=== PATIENT | female | born 1965 | race Caucasian/White ===

== ENCOUNTER 2022-07-25 15:50 | Observation (INO) | payer SELFPAY ==
[2022-07-25 15:50] VITALS: BP 159/98; PULSE 58; RESP 20; TEMP 36.8; O2SAT 97; BMI 26.1
--- NOTE | 2022-07-25 15:50 | ECG_ITS ---
APPROVED REPORT Exam: Resting ECG HR:58 bpm ECG Measurements Heart Rate 58 AXES IA 164 P 43 QRSd 82 QRS 70 QT 431 T 84 QTc 427 Conclusion SINUS BRADYCARDIA BORDERLINE ECG UNCONFIRMED REPORT Electronically signed by : Mo Julian MD 07/25/2022 19:41:28
--- NOTE | 2022-07-25 16:00 | PC.NURSE ---
lab called for blood collection
[2022-07-25 16:18] VITALS: BMI 24.7
--- NOTE | 2022-07-25 16:26 | XR_ITS ---
FINAL REPORT CLINICAL HISTORY: pain COMPARISON: 07/25/2022 FINDINGS: PORTABLE CHEST The heart is normal in size. The mediastinum is unremarkable. The lungs are clear. There is no pneumothorax. IMPRESSION: No acute process. Reviewed, Interpreted and Dictated by Justin Escobedo MD Transcribed by Claudia Hatch Authenticated and [facility]
--- NOTE | 2022-07-25 16:34 | CT_ITS ---
PROCEDURE INFORMATION: Exam: CT Abdomen And Pelvis With Contrast Exam date and time: 07/25/2022 7:21 PM Age: 56 years old Clinical indication: Abdominal pain; Generalized; Additional info: Abd pain TECHNIQUE: Imaging protocol: Computed tomography of the abdomen and pelvis with contrast. Radiation optimization: All CT scans at this facility use at least one of these dose optimization techniques: automated exposure control; mA and/or kV adjustment per patient size (includes targeted exams where dose is matched to clinical indication); or iterative reconstruction. Contrast material: ISOVUE; Contrast volume: 75 ml; Contrast route: IV; COMPARISON: CR XR CHEST PORTABLE 07/25/2022 4:44 PM FINDINGS: Lungs: Mild scarring and atelectasis in the lower lungs. Heart: Coronary artery calcifications. Liver: Hyperemia of the liver around the gallbladder fossa is likely reactive. Gallbladder and bile ducts: The gallbladder is dilated with gallbladder wall thickening and pericholecystic edema. There is likely a stone at the neck of the gallbladder. Pancreas: Normal. No ductal dilation. Spleen: Normal. No splenomegaly. Adrenal glands: Normal. No mass. Kidneys and ureters: Normal. No hydronephrosis. Stomach and bowel: Unremarkable. No obstruction. No mucosal thickening. Appendix: Unremarkable appendix. Intraperitoneal space: Unremarkable. No free air. No significant fluid collection. Vasculature: The arteries demonstrate moderate atherosclerotic disease. Lymph nodes: Unremarkable. No enlarged lymph nodes. Urinary bladder: Unremarkable as visualized. Reproductive: Unremarkable as visualized. Bones/joints: Unremarkable. No acute fracture. Soft tissues: Tiny fat containing umbilical hernia. Other findings: Stigmata of old granulomatous disease. IMPRESSION: Acute cholecystitis.
--- NOTE | 2022-07-25 16:35 | HMH.EDGENADL ---
Discharge Plan Disposition Patient Disposition: Admitted As Inpatient Condition: Good Referrals Follow up/Referrals: Provider,Referral, MD [Referring] - See instructions Clinical Impressions Clinical Impression: Acute cholecystitis Discharge ED Provider: Waqar Rodas General Adult HPI General Chief complaint: PAIN Stated complaint: epigastric pain Time Seen by Provider: 07/25/22 16:24 History of Present Illness HPI narrative: Patient presents complaining of upper abdominal pain that began this past Sunday. She describes the pain as radiating into her back as well as under her chest. She notes nausea but denies vomiting or diarrhea. She describes the pain as severe initially but presently is moderate and without exacerbating or alleviating factors. Related Data Allergies Allergy/AdvReac Type Severity Reaction Status Date / Time No Known Allergies Allergy Verified 07/25/22 16:19 PFSH PFSH Social History Smoking Status: Never smoker alcohol intake: never current occupational status: unemployed Travel in the last 8 weeks: None ROS Obtained: Yes All systems reviewed & no additional complaints except as documented Physical Exam General General appearance: alert and in no apparent distress Head Head exam: atraumatic, normocephalic and normal inspection Eye Eye exam: Present normal appearance, PERRL and EOMI ENT ENT exam: Present normal exam, normal oropharynx, mucous membranes moist, TM's normal bilaterally and normal external ear exam Neck Neck exam: Present normal inspection, full ROM and trachea midline; Absent meningismus or lymphadenopathy Chest Chest inspection: Present normal inspection and symmetric chest wall rise; Absent tenderness Respiratory Respiratory exam: Present normal lung sounds bilaterally; Absent respiratory distress Cardiovascular Cardiovascular exam: Present regular rate and normal rhythm; Absent JVD Abdominal Exam Abdominal exam: Present tenderness (There is diffuse upper abdominal tenderness particular in the right upper quadrant.) Extremities Exam Extremities exam: Present normal inspection, full ROM and normal capillary refill; Absent calf tenderness Back Exam Back exam: Present normal inspection; Absent tenderness Neurological Exam Neurological exam: Present alert and oriented X3 Psychiatric Psychiatric exam: Present normal affect and normal mood Skin Skin exam: Present warm, dry, intact and normal color Lymphatic Lymphatic Findings: no adenopathy Medical Decision Making Medical Records Medical records reviewed: Yes I reviewed the patient's medical records. Matty Inquiry Pt receiving controlled substance: Yes Matty was queried for this patient: No Reason not queried -: Emergent pt cond-no time Risks and benefits of using a controlled substance: were discussed with pt by me Vital Signs: 07/25/22 15:50 07/25/22 17:02 07/25/22 18:00 Temperature 98.3 F Temperature Source Oral Pulse Rate 48 L 61 Pulse Rate [Left Radial] 58 L Respiratory Rate 20 20 16 Blood Pressure 196/93 H 173/99 H Blood Pressure [Right Arm] 159/98 H Blood Pressure Mean 127 123 Blood Pressure Mean [Right Arm] 118 02 Sat by Pulse Oximetry 97 98 97 Lab Data Lab results reviewed: Yes I reviewed the patient's lab results. Lab Results 07/25/22 17:35: Troponin I < 0.01 07/25/22 17:35: WBC 12.8 H, RBC 4.62, Hgb 14.0, Hct 42.2, MCV 91.3, MCH 30.3, MCHC 33.1, RDW 14.1, Plt Count 309, MPV 8.4, Neut % (Auto) 78.1, Lymph % (Auto) 17.9, [place] % (Auto) 3.2, Eos % (Auto) 0.2, Baso % (Auto) 0.7, Neut # (Auto) 10.0 H, Lymph # (Auto) 2.3, [place] # (Auto) 0.4, Eos # (Auto) 0.0, Baso # (Auto) 0.1 07/25/22 17:35: Sodium 140, Potassium 4.4, Chloride 105, Carbon Dioxide 27, Anion Gap 12.4, BUN 5 L, Creatinine 0.50 L, Estimated Creat Clear 140, Estimated GFR 127, Est GFR ( Amer) 154, Glucose 113 H, Calcium 8.9, Total Bilirubin 0.2, AST 30, ALT 38, Alkaline Phosphatase 143 H, Total Protein 6.8,
[2022-07-25 17:02] VITALS: BP 196/93; PULSE 48; RESP 20; O2SAT 98
--- NOTE | 2022-07-25 17:33 | PC.NURSE ---
lab at the bedside for blood draw
[2022-07-25 17:49] LABS: Basophils # 0.1 K/mm3 (0-0.2); Basophils % 0.7 % (0.1-2.0); Eosinophils % 0.2 % (0.1-12.0); Hematocrit 42.2 % (37.0-47.0); Lymphocytes # 2.3 K/mm3 (0.7-4.5); Lymphocytes % 17.9 % (10-50); Mean Corpuscular HGB Conc 33.1 g/dL (31.8-35.4); Mean Corpuscular Hemoglobin 30.3 pg (27.0-31.2); Mean Corpuscular Volume 91.3 fl (81-99); Mean Platelet Volume 8.4 fl (7.4-10.4); Monocytes # 0.4 K/mm3 (0.1-1.0); Monocytes % 3.2 % (1.7-9.3); Neutrophils % 78.1 % (37.0-80.0); Platelet Count 309 K/mm3 (142-424); Red Blood Count 4.62 M/mm3 (4.20-5.40); Red Cell Distribution Width 14.1 % (11.5-17.5); White Blood Count 12.8 K/mm3 (4.8-10.8)
[2022-07-25 18:00] VITALS: BP 173/99; PULSE 61; RESP 16; O2SAT 97
[2022-07-25 18:06] LABS: Alanine Aminotransferase 38 U/L (12-78); Albumin Level 3.9 g/dl (3.5-5.0); Albumin/Globulin Ratio 1.3 (1.1-1.8); Alkaline Phosphatase 143 U/L (38-126); Anion Gap 12.4 mEq/L (5-15); Aspartate Amino Transferase 30 U/L (14-36); Bilirubin,Total 0.2 mg/dl (0.2-1.3); Blood Urea Nitrogen 5 mg/dl (7-17); Calcium 8.9 mg/dl (8.4-10.2); Carbon Dioxide 27 mmol/L (22.0-30.0); Chloride 105 mmol/L (98-107); Creatinine Clearance Estimated 140 mL/min (50-200); Estimated Glomerular Filt Rate 127 ml/min (>60); GFR (African American) 154 ML/MIN (>60); Globulin 2.9 g/dL (1.3-3.2); Glucose 113 mg/dl (74-100); Lipase 115 U/L (23-300); Potassium 4.4 mmoL/L (3.5-5.1); Sodium 140 mmol/L (136-145); Total Protein,Serum 6.8 g/dl (6.3-8.2)
[2022-07-25 18:20] LABS: Troponin I < 0.01 ng/ml (0.00-0.034)
--- NOTE | 2022-07-25 18:55 | PC.NURSE ---
Rounded on pt at this time. Pt advised she still felt tense. Notified MD. Requested surgeon be paged. Dr. Hamilton paged at this time
--- NOTE | 2022-07-25 18:57 | PC.NURSE ---
speaking to dr mauricio
--- NOTE | 2022-07-25 18:57 | PC.NURSE ---
speaking with DR. Hamilton
[2022-07-25 19:14] LABS: Coronavirus 19, PCR Not Detected (NotDetected); Influenza A, PCR Not Detected (NotDetected); Influenza B, PCR Not Detected (NotDetected)
--- NOTE | 2022-07-25 19:27 | EXP.HP ---
History of Present Illness *Admission Date: 07/25/22 *Reason for visit:: Abdominal Pain, Nausea, Vomiting *History of present illness: Ms. Garcia is a 56-year-old female with a past medical history that is positive for Chronic Tobacco use. She presents to [facility] through the ER due to right upper abdominal quadrant pain associated with nausea, vomiting and reported chills ongoing and worsening over a 4 day period. In the ER, CT of the abdomen and pelvis showed a dilated gallbladder with gallbladder wall thickening and pericholecystic edema consistent with acute cholecystitis. The patient will be admitted with initial impression: Acute Cholecystitis. Surgery has been consulted to see the patient. The plan of care was discussed with the patient in length and detail at bedside in the ER. The patient verbalized understanding and agreement with the plan of care. [facility] Medical History (Updated 07/26/22 @ 07:47 by Aleks Camacho MD) History of gastroesophageal reflux (GERD) Migraine Surgical History (Updated 07/25/22 @ 21:17 by Kisha Goode RN) H/O abdominoplasty History of section Tubal ligation status Family History (Updated 07/25/22 @ 21:17 by Kisha Goode RN) Family history of GERD Family history of stroke Family history of cancer Family history of hypertension Family history of Alzheimer's disease Family history of diabetes mellitus type II Family history of migraine headaches Family history of myocardial infarction Family history of hyperlipidemia Social History (Updated 07/25/22 @ 21:17 by Kisha Goode RN) Smoking Status: Current every day smoker alcohol intake: never current occupational status: other Travel in the last 8 weeks: None Review of Systems Review of Systems Review of systems:: pertinent systems reviewed and negative unless documented below Constitutional Constitutional: Reports system reviewed and no additional complaints, except as documented Eyes Eyes: Reports system reviewed and no additional complaints, except as documented ENT Ears, Nose, Mouth, and Throat: Reports system reviewed and no additional complaints, except as documented *Cardiovascular Cardiovascular: Reports system reviewed and no additional complaints, except as documented *Respiratory Respiratory: Reports system reviewed and no additional complaints, except as documented *Gastrointestinal Gastrointestinal: Reports abdominal pain, Reports belching, Reports bloating, Reports nausea and Reports vomiting *Genitourinary Genitourinary: Reports system reviewed and no additional complaints, except as documented *Musculoskeletal Musculoskeletal: Reports system reviewed and no additional complaints, except as documented Integumentary/Breasts Skin/Breast: Reports system reviewed and no additional complaints, except as documented *Neurologic Neurologic: Reports system reviewed and no additional complaints, except as documented Psychiatric Psychiatric: Reports system reviewed and no additional complaints, except as documented Endocrine Endocrine: Reports system reviewed and no additional complaints, except as documented Hematologic/Lymphatic Hematologic/Lymphatic: Reports system reviewed and no additional complaints, except as documented Allergic/Immunologic Allergic/Immunologic: Reports system reviewed and no additional complaints, except as documented Meds Home Medications and Allergies Home Medications Medication Instructions Recorded Confirmed Type No Known Home Medications 07/25/22 07/25/22 History New Prescriptions to Start Prescriptions: Allergies Allergy/AdvReac Type Severity Reaction Status Date / Time No Known Allergies Allergy Verified 07/25/22 16:19 Exam Data for Last 24 hours Vital signs and Labs for Last 24 Hours: Temp Pulse Resp BP Pulse Ox 98.3 F 61 16 173/99 H 97 07/25/22 15:50 07/25/22 18:00 07/25/22 18:00 07/25/22 18:00 07/25
[2022-07-25 19:32] LABS: Microscopic, Urine URINE MICROSCOPIC (MICROSCOPIC)
[2022-07-25 19:39] VITALS: BP 179/93; PULSE 41; RESP 16; TEMP 36.7; O2SAT 98; BMI 26.4
[2022-07-25 19:49] LABS: Appearance,Urine CLEAR (Clear); Bilirubin,Urine Negative (Negative); Blood, Urine TRACE-I (Negative); Color,Urine YELLOW (Yellow); Glucose,Urine (UA) Negative (Negative); Ketones,Urine Negative (Negative); Leukocyte Esterase,Urine Negative (Negative); Nitrate,Urine Negative (Negative); PH,Urine 6.5 (5.0-8.5); Protein,Urine Negative (Negative); Urobilinogen,Urine 0.2 EU/dl (0.2)
--- NOTE | 2022-07-25 19:55 | PC.NURSE ---
pt blood pressure cuff changed. pt assessed for further needs. no requests at this time
[2022-07-25 19:56] VITALS: BP 159/79; PULSE 42; RESP 17; O2SAT 95
[2022-07-25 20:19] LABS: Bacteria,Urine Trace /lpf; RBC,Urine Occasional #/hpf (0-3); Squamous Epithelial Cell,Urine Occasional #/hpf (0-5); WBC,Urine Occasional #/hpf (0-3)
[2022-07-25 20:22] VITALS: BP 164/80; PULSE 45; RESP 20; TEMP 36.6; O2SAT 99
--- NOTE | 2022-07-25 20:34 | PC.NURSE ---
PT ARRIVED TO FLOOR VIA WHEELCHAIR AT THIS TIME
[2022-07-26 04:00] VITALS: BP 152/82; PULSE 44; RESP 16; TEMP 36.6; O2SAT 98
--- NOTE | 2022-07-26 05:11 | US_ITS ---
FINAL REPORT CLINICAL HISTORY: acute cholecystitis FINDINGS: RIGHT UPPER QUADRANT ULTRASOUND Sonographic images of the right upper quadrant were obtained. The pancreas is partially obscured. There is mild fatty infiltration of the liver. There are gallstones with pericholecystic fluid. There is gallbladder wall thickening measuring up to 8 mm. The common duct is normal. Limited images of the right kidney are normal. IMPRESSION: Gallstones with pericholecystic fluid and gallbladder wall thickening, acute cholecystitis is not excluded. Reviewed, Interpreted and Dictated by Justin Escobedo MD Transcribed by Tere Taveras Authenticated and [facility]
--- NOTE | 2022-07-26 05:36 | PC.NURSE ---
NO ACUTE CHANGES SINCE PREVIOUS ASSESSMENT. PT HAS RESTED INTERMITTENTLY THIS SHIFT. ABD REMAINS SOFT AND TENDER. PT HAS C/O NAUSEA/VOMITING AND BACK PAIN THIS SHIFT AND HAS BEEN MEDICATED PER MAR. PT DID SAY THAT THE PAIN PILL THAT SHE GOT HELPED MORE THAN THE MORPHINE BECAUSE THE MORPHINE JUST SEEMS TO MAKE HER NAUSEATED. VSS. LUNG SOUNDS CLEAR.
--- NOTE | 2022-07-26 07:45 | EXP.SURG.CON ---
History of Present Illness *Admission Date: 07/25/22 *Reason for visit:: Cholecystitis *History of present illness: This is a 56-year-old female seen in consultation at presented emergency department with increasing upper abdominal pain. She had radiographic evidence consistent with acute cholecystitis and was admitted for further evaluation management. Currently she feels quite a bit better and wants to go home . Forwarded from admission H&P: Ms. Garcia is a 56-year-old female with a past medical history that is positive for Chronic Tobacco use. She presents to [facility] through the ER due to right upper abdominal quadrant pain associated with nausea, vomiting and reported chills ongoing and worsening over a 4 day period. In the ER, CT of the abdomen and pelvis showed a dilated gallbladder with gallbladder wall thickening and pericholecystic edema consistent with acute cholecystitis. The patient will be admitted with initial impression: Acute Cholecystitis. Surgery has been consulted to see the patient. The plan of care was discussed with the patient in length and detail at bedside in the ER. The patient verbalized understanding and agreement with the plan of care. [facility] Medical History (Updated 07/26/22 @ 07:47 by Aleks Caamcho MD) History of gastroesophageal reflux (GERD) Migraine Surgical History (Updated 07/25/22 @ 21:17 by Kisha Goode RN) H/O abdominoplasty History of section Tubal ligation status Family History (Updated 07/25/22 @ 21:17 by Kisha Goode RN) Family history of GERD Family history of stroke Family history of cancer Family history of hypertension Family history of Alzheimer's disease Family history of diabetes mellitus type II Family history of migraine headaches Family history of myocardial infarction Family history of hyperlipidemia Social History (Updated 07/25/22 @ 21:17 by Kisha Goode RN) Smoking Status: Current every day smoker alcohol intake: never current occupational status: other Travel in the last 8 weeks: None Review of Systems *Neurologic Neurologic: Reports system reviewed and no additional complaints, except as documented Meds Home Medications and Allergies Home Medications Medication Instructions Recorded Confirmed Type No Known Home Medications 07/25/22 07/25/22 History New Prescriptions to Start Prescriptions: Allergies Allergy/AdvReac Type Severity Reaction Status Date / Time No Known Allergies Allergy Verified 07/25/22 16:19 Exam (Inpt) Vital signs and Labs for Last 24 Hours: Temp Pulse Resp BP Pulse Ox 98 F 44 L 16 152/82 H 98 07/26/22 04:00 07/26/22 04:00 07/26/22 04:00 07/26/22 04:00 07/26/22 04:00 Laboratory Results - last 24 hr 07/25/22 17:35: Troponin I < 0.01 07/25/22 17:35: WBC 12.8 H, RBC 4.62, Hgb 14.0, Hct 42.2, MCV 91.3, MCH 30.3, MCHC 33.1, RDW 14.1, Plt Count 309, MPV 8.4, Neut % (Auto) 78.1, Lymph % (Auto) 17.9, [place] % (Auto) 3.2, Eos % (Auto) 0.2, Baso % (Auto) 0.7, Neut # (Auto) 10.0 H, Lymph # (Auto) 2.3, [place] # (Auto) 0.4, Eos # (Auto) 0.0, Baso # (Auto) 0.1 07/25/22 17:35: Sodium 140, Potassium 4.4, Chloride 105, Carbon Dioxide 27, Anion Gap 12.4, BUN 5 L, Creatinine 0.50 L, Estimated Creat Clear 140, Estimated GFR 127, Est GFR ( Amer) 154, Glucose 113 H, Calcium 8.9, Total Bilirubin 0.2, AST 30, ALT 38, Alkaline Phosphatase 143 H, Total Protein 6.8, Albumin 3.9, Globulin 2.9, Albumin/Globulin Ratio 1.3, Lipase 115 07/25/22 19:01: SARS-CoV-2 (PCR) Not detected, Influenza A Untype (PCR) Not detected, Influenza Type B (PCR) Not detected 07/25/22 19:21: Urine Color Yellow, Urine Appearance Clear, Urine pH 6.5, Ur Specific [place] 1.020, Urine Protein Negative, Urine Glucose (UA) Negative, Urine Ketones Negative, Urine Blood Trace-i, Urine Nitrate Negative, Urine Bilirubin Negative, Urine Urobilinogen 0
[2022-07-26 07:52] VITALS: BP 124/58; PULSE 45; RESP 16; TEMP 36.7; O2SAT 96
[2022-07-26 10:21] LABS: Basophils # 0.1 K/mm3 (0-0.2); Eosinophils # 0.1 K/mm3 (0.0-0.4); Eosinophils % 0.6 % (0.1-12.0); Hematocrit 41.1 % (37.0-47.0); Hemoglobin 13.6 g/dL (12.2-16.2); Lymphocytes # 3.5 K/mm3 (0.7-4.5); Lymphocytes % 32.4 % (10-50); Mean Corpuscular Hemoglobin 30.8 pg (27.0-31.2); Mean Corpuscular Volume 93.2 fl (81-99); Mean Platelet Volume 8.5 fl (7.4-10.4); Monocytes # 0.6 K/mm3 (0.1-1.0); Monocytes % 5.7 % (1.7-9.3); Neutrophils # 6.4 K/mm3 (1.8-7.8); Neutrophils % 60.3 % (37.0-80.0); Platelet Count 306 K/mm3 (142-424); Red Blood Count 4.41 M/mm3 (4.20-5.40); Red Cell Distribution Width 14.4 % (11.5-17.5); White Blood Count 10.6 K/mm3 (4.8-10.8)
[2022-07-26 10:30] LABS: Chloride 107 mmol/L (98-107); Sodium 140 mmol/L (136-145)
[2022-07-26 10:31] LABS: Potassium 4.2 mmoL/L (3.5-5.1)
[2022-07-26 10:33] LABS: Alanine Aminotransferase 43 U/L (12-78); Albumin Level 3.6 g/dl (3.5-5.0); Alkaline Phosphatase 123 U/L (38-126); Aspartate Amino Transferase 44 U/L (14-36); Bilirubin,Total 0.5 mg/dl (0.2-1.3); Blood Urea Nitrogen 4 mg/dl (7-17); Creatinine Clearance Estimated 125 mL/min (50-200); Estimated Glomerular Filt Rate 103 ml/min (>60); GFR (African American) 125 ML/MIN (>60)
[2022-07-26 10:34] LABS: Albumin/Globulin Ratio 1.4 (1.1-1.8); Anion Gap 8.2 mEq/L (5-15); Calcium 8.6 mg/dl (8.4-10.2); Carbon Dioxide 29 mmol/L (22.0-30.0); Globulin 2.5 g/dL (1.3-3.2); Glucose 111 mg/dl (74-100); Total Protein,Serum 6.1 g/dl (6.3-8.2)
--- NOTE | 2022-07-26 13:08 | EXP.DC.SUM ---
General Admission date:: 07/25/22 Discharge date: 07/26/22 HPI HPI HPI: This is a 56-year-old female seen in consultation at presented emergency department with increasing upper abdominal pain. She had radiographic evidence consistent with acute cholecystitis and was admitted for further evaluation management. Currently she feels quite a bit better and wants to go home . Forwarded from admission H&P: Ms. Garcia is a 56-year-old female with a past medical history that is positive for Chronic Tobacco use. She presents to [facility] through the ER due to right upper abdominal quadrant pain associated with nausea, vomiting and reported chills ongoing and worsening over a 4 day period. In the ER, CT of the abdomen and pelvis showed a dilated gallbladder with gallbladder wall thickening and pericholecystic edema consistent with acute cholecystitis. The patient will be admitted with initial impression: Acute Cholecystitis. Surgery has been consulted to see the patient. The plan of care was discussed with the patient in length and detail at bedside in the ER. The patient verbalized understanding and agreement with the plan of care. Hospital Course Hospital Course Hospital Course: 56-year-old female with past medical history of chronic tobacco abuse, presents with 4-day history of right upper abdominal quadrant pain associated with nausea, vomiting, CT findings consistent with Acute Cholecystitis - Acute Cholecystitis Presents with 4 day history of waxing and waning abdominal pain, nausea, vomiting. CT findings concerning for Acute Cholecystitis. Surgery was consulted, given patient's stability and improvement in pain morning after admission, will plan for outpatient surgical intervention. Patient tolerating p.o. fluids. Ultrasound obtained showing Gallstones with pericholecystic fluid and gallbladder wall thickening, acute cholecystitis is not excluded. Patient was started on Zosyn on admission, transition to Augmentin at discharge. We will continue hydrocodone for pain control and Zofran for nausea. Surgery scheduled for tomorrow at noon. Medically stable for discharge home, return tomorrow for outpatient surgery. Patient updated on medications. Patient concurs with plan. Exam Data for Last 24 hours Vital signs and Labs for Last 24 Hours: Temp Pulse Resp BP Pulse Ox 98.0 F 45 L 16 124/58 L 96 07/26/22 07:52 07/26/22 07:52 07/26/22 07:52 07/26/22 07:52 07/26/22 07:52 Laboratory Results - last 24 hr 07/25/22 17:35: Troponin I < 0.01 07/25/22 17:35: WBC 12.8 H, RBC 4.62, Hgb 14.0, Hct 42.2, MCV 91.3, MCH 30.3, MCHC 33.1, RDW 14.1, Plt Count 309, MPV 8.4, Neut % (Auto) 78.1, Lymph % (Auto) 17.9, [place] % (Auto) 3.2, Eos % (Auto) 0.2, Baso % (Auto) 0.7, Neut # (Auto) 10.0 H, Lymph # (Auto) 2.3, [place] # (Auto) 0.4, Eos # (Auto) 0.0, Baso # (Auto) 0.1 07/25/22 17:35: Sodium 140, Potassium 4.4, Chloride 105, Carbon Dioxide 27, Anion Gap 12.4, BUN 5 L, Creatinine 0.50 L, Estimated Creat Clear 140, Estimated GFR 127, Est GFR ( Amer) 154, Glucose 113 H, Calcium 8.9, Total Bilirubin 0.2, AST 30, ALT 38, Alkaline Phosphatase 143 H, Total Protein 6.8, Albumin 3.9, Globulin 2.9, Albumin/Globulin Ratio 1.3, Lipase 115 07/25/22 19:01: SARS-CoV-2 (PCR) Not detected, Influenza A Untype (PCR) Not detected, Influenza Type B (PCR) Not detected 07/25/22 19:21: Urine Color Yellow, Urine Appearance Clear, Urine pH 6.5, Ur Specific [place] 1.020, Urine Protein Negative, Urine Glucose (UA) Negative, Urine Ketones Negative, Urine Blood Trace-i, Urine Nitrate Negative, Urine Bilirubin Negative, Urine Urobilinogen 0.2, Ur Leukocyte Esterase Negative, Urine RBC Occasional, Urine WBC Occasional, Ur Squamous Epith Cells Occasional, Urine Bacteria Trace 07/26/22 10:04: WBC 10.6, RBC 4.41, Hgb 13.6, Hct 41.1, MCV 93.2, MCH 30.8, MCHC 33.0, RDW 14.4, Plt Count 306, MPV 8.5, Neut % (Auto) 60.3, Lymph
--- NOTE | 2022-07-26 13:24 | HMH.PHAINT1 ---
Pharmacy Intervention Comments: Discharge counseling completed at bedside with the patient. Discussed new medications including Augmentin, hydrocodone/APAP, and ondansetron. Overviewed indication for each medication and possible side effects/mitigation strategies. Patient verbalized understanding and has no questions or concerns at this time.
== END 2022-07-26 14:55 | disposition home or self-care (01) ==
LOC: ER 19:00 → 2ND 19:31
PROVIDERS: Nurse Practitioner Family; Admitting Provider Internal Medicine Adolescent Medicine; Emergency Provider Emergency Medicine; PCP Nurse Practitioner Family; Visit Provider Internal Medicine Adolescent Medicine
DX: K80.00 Calculus of gallbladder with acute cholecystitis without obstruction (principal); F17.210 Nicotine dependence, cigarettes, uncomplicated; R10.11 Right upper quadrant pain
CPT/HCPCS: 71045; 74177; 76705; 80053; 81001; 83690; 84484; 85025; 93005; 99285; C9803; G0378; J2405; J2543; Q9967; U0003; U0005

== ENCOUNTER 2022-07-27 10:08 | Day surgery (SDC) | payer SELFPAY ==
[2022-07-27] VITALS (10 sets, daily range): BP systolic 134–148; BP diastolic 89–95; PULSE 57–90; RESP 12–18; TEMP 36.4–43; O2SAT 93–98; BMI 28.8
--- NOTE | 2022-07-27 11:35 | EXP.ANES.CKL ---
[facility] Medical History (Updated 07/27/22 @ 10:42 by Cecelia Cruz RN) History of gastroesophageal reflux (GERD) Migraine No significant past medical history Surgical History (Updated 07/27/22 @ 10:40 by Cecelia Cruz RN) H/O abdominoplasty History of bilateral breast reduction surgery History of section Tubal ligation status Family History Other Family history of Alzheimer's disease Family history of GERD Family history of cancer Family history of diabetes mellitus type II Family history of hyperlipidemia Family history of hypertension Family history of migraine headaches Family history of myocardial infarction Family history of stroke Social History (Updated 07/27/22 @ 10:42 by Cecelia Cruz RN) Smoking Status: Current every day smoker alcohol intake: never substance use type: denies use current occupational status: other Travel in the last 8 weeks: None [facility] Anesthesia Checklist Patient Identification Patient Identification: Verbal (Name & ) Structural Data Admitted From: Home Planned Operative Procedure/s: lap kayce Consent for Planned Operative Procedure(s) Verified: Yes NPO Status Verified Time NPO: 00:00 Additional verifications Anesthesia Reactions: No Hx Blood Transfusions: No Airway Assessment C-Spine Mobility Assessed: Yes TMJ Mobility Assessed: Yes Dentition: Partials Neurological Assessment Level of Consciousness: Awake, Alert and Appropriate Anesthesia Plan Anesthesia Risk discussed: Yes Anesthesia Plan: Verified ASA Class: II Anesthesia Type: General
--- NOTE | 2022-07-27 12:38 | EXP.OP.NOTE ---
Date of procedure: 07/27/22 Pre-op Diagnosis:: Acute calculus cholecystitis Post-op Diagnosis:: Acute calculus cholecystitis Gallbladder hydrops Procedure performed:: Laparoscopic cholecystectomy Surgeon:: Aleks Camacho MD TARIFF COUNSEL:: Favio Bustamante Anesthesia: GETA Estimated blood loss (mL): 25 Operative findings:: Severe gallbladder distention Hydropic gallbladder Severe infundibular thickening Operative note:: After informed consent was obtained, the patient was taken to the operating room and placed in the supine position. General anesthesia was induced and the abdomen was prepped and draped in a sterile fashion. After infiltration with local anesthetic an infraumbilical incision was made. A Veress needle was placed in position. The abdomen was insufflated. A 5 mm optical trocar was placed in position. Under direct visualization, a 12 mm trocar was placed in the subxiphoid position and 2 additional 5 mm trocars were placed in the right upper quadrant. The gallbladder was elevated up and over the liver margin. The tissue around the cystic duct was carefully dissected. 3 clips were placed proximally and the duct was transected with harmonic kevin. Harmonic kevin were then utilized to dissect the gallbladder away from the liver margin with careful attention to the control of the cystic artery. The gallbladder was placed in a retrieval bag and removed through the subxiphoid trocar site. The right upper quadrant was thoroughly irrigated. No active bleeding or bile leak was noted. Fascia at the subxiphoid trocar site was reapproximated utilizing 0 Ethibond. The remaining trocars were removed. All wounds were irrigated and skin was closed with 4-0 Monocryl in a subcuticular fashion. Steri-Strips were applied. The patient's anesthetic agents were reversed and extubation was completed prior to transfer to recovery in stable condition. Condition: stable Disposition: PACU Specimens:: Gallbladder Complications:: No immediate
--- NOTE | 2022-07-27 12:48 | P.PNANES_ITS ---
[facility] Anesthesia Record Part I Anesthesia Record I Intake, IV Amount: 1,500 Estimated blood loss (mL): 0 Urine output (mL): 0 Blood Pressure: 144/92 SaO2: 95 Pulse Rate: 90 Respiratory Rate: 12 Temperature: 98.8 F Patient is:: Awake and Stable Stable to PACU at:: 12:45
--- NOTE | 2022-07-29 14:25 | EXP.ANES.II ---
[facility] Anesthesia Record Part II Anesthesia Record Part II Discharge Time: 13:25 Destination: [facility] (OP Surgery) PACU nurse assessment reviewed?: Yes Patient Condition:: Good Anesthesia Complications:: None Swallowing reflex intact?: Yes Cyanosis?: No Blood Pressure: 144/91 Pulse Rate: 61 Temperature: 98.7 F Mental Status: Alert & Oriented Pain level:: 2 Nausea and/or vomitting:: None Intake, IV Amount: 0
[2022-07-29 14:26] VITALS: BP 144/91; PULSE 61; TEMP 37.1
== END 2022-07-27 14:17 | disposition home or self-care (01) ==
PROVIDERS: PCP Nurse Practitioner Family; Visit Provider Surgery
PROC: 0FT44ZZ Resection of Gallbladder, Percutaneous Endoscopic Approach (ICD-10-PCS; CPT 47562; principal; 2022-07-27 11:30)
DX: K82.1 Hydrops of gallbladder; Z72.0 Tobacco use; Z79.899 Other long term (current) drug therapy; K80.12 Calculus of gallbladder with acute and chronic cholecystitis without obstruction
CPT/HCPCS: 47562; 96374; J2405